=== PATIENT | male | born 1980 | race Caucasian/White ===

== ENCOUNTER 2018-10-12 19:42 | Emergency (ER) | payer BC ==
[~2018-10-12] VITALS: Ht 180.3 cm; Wt 127.2 kg
[~2018-10-12 19:42] MED LIST: AMOXICILLIN/CL875 MG OR; AUGMENTIN875TAB OR; BACTRIM DS1 TAB PO; NAPROSYN500 MG PO; NASONEX50 MCG/AC; NO MEDS; TET/DIP TOX1 ML IM; ZOFRAN ODT4 MG PO; ZPAK OR
[2018-10-12] MEDS ORDERED: BLOOD PRESSURE (19:55)
[2018-10-12 20:51] VITALS: BP 128/72
== END 2018-10-12 20:45 | disposition left against medical advice (07) | DRG 914 ==
LOC: ED 19:42
DX: S68.620A Partial traumatic transphalangeal amputation of right index finger, initial encounter (principal); W31.2XXA Contact with powered woodworking and forming machines, initial encounter; Y93.89 Activity, other specified; Y92.009 Unspecified place in unspecified non-institutional (private) residence as the place of occurrence of the external cause; Z91.19 Patient's noncompliance with other medical treatment and regimen; R11.0 Nausea